=== PATIENT | male | born 1975 ===

== ENCOUNTER 2018-03-10 09:12 | Outpatient (CLI) | payer OTHER ==
[~2018-03-10] VITALS: Ht 182.9 cm; Wt 88.9 kg
== END 2018-03-10 09:30 | disposition home or self-care (01) ==
LOC: OFIC 805 09:12
DX: G47.33 Obstructive sleep apnea (adult) (pediatric) (principal); J01.80 Other acute sinusitis; K21.9 Gastro-esophageal reflux disease without esophagitis

== ENCOUNTER 2018-04-21 09:10 | Outpatient (CLI) | payer OTHER ==
[~2018-04-21] VITALS: Ht 182.9 cm; Wt 88.9 kg
== END 2018-04-21 09:25 | disposition home or self-care (01) ==
LOC: OFIC 805 09:10
DX: K21.0 Gastro-esophageal reflux disease with esophagitis (principal); J32.8 Other chronic sinusitis

== ENCOUNTER 2018-06-07 11:50 | Outpatient (CLI) | payer OTHER ==
[~2018-06-07] VITALS: Ht 182.9 cm; Wt 88.9 kg
== END 2018-06-07 12:10 | disposition home or self-care (01) ==
LOC: OFIC 805 11:50
DX: G47.33 Obstructive sleep apnea (adult) (pediatric) (principal)

== ENCOUNTER → 2019-08-02 | Outpatient (CLI) | payer OTHER ==
[~2019-08-02] MED LIST: DYMISTA NASAL S23 GM NASAL; NEILMED SINUS1 EACH NASAL; PRILOSEC OTC20 MG PO; SINGULAIR 10MG10 MG PO; ZANTAC150 M3 PO
== END | disposition home or self-care (01) ==
LOC: OFIC 805 11:30
DX: J32.8 Other chronic sinusitis (principal); K21.0 Gastro-esophageal reflux disease with esophagitis; G47.33 Obstructive sleep apnea (adult) (pediatric); J30.89 Other allergic rhinitis